=== PATIENT | female | born 1970 | race Native Hawaiian/Other Pacific Islander ===

== ENCOUNTER 2016-07-08 15:28 | Emergency (ER) | payer OTHER ==
[~2016-07-08] VITALS: Ht 162.6 cm; Wt 48.5 kg
[2016-07-08] MEDS ORDERED: CLON1TAB18 PO (15:56)
[2016-07-08] MEDS ORDERED: ADDERALL10 MG OR (15:57)
== END 2016-07-08 15:59 | disposition home or self-care (01) ==
LOC: ED 15:28
DX: L02.212 Cutaneous abscess of back [any part, except buttock and flank] (principal)
CPT/HCPCS: 99282

== ENCOUNTER 2016-11-14 19:00 | Emergency (ER) | payer OTHER ==
[~2016-11-14] VITALS: Ht 162.6 cm; Wt 47.6 kg
[~2016-11-14 19:00] MED LIST: ADDERALL10 MG OR; CLON1TAB18 PO
== END 2016-11-14 20:50 | disposition home or self-care (01) ==
LOC: ED 19:00
PROC: 2W3DX1Z Immobilization of Left Lower Arm using Splint (ICD-10-PCS; principal; 2016-11-14)
DX: S52.592A Other fractures of lower end of left radius, initial encounter for closed fracture (principal); V80.010A Animal-rider injured by fall from or being thrown from horse in noncollision accident, initial encounter; Y92.89 Other specified places as the place of occurrence of the external cause
CPT/HCPCS: 99283

== ENCOUNTER 2022-06-12 13:07 | Outpatient (CLI) | payer OTHER | END 2022-06-12 19:32 | disposition home or self-care (01) | LOC: MAMMO 13:07 | PROVIDERS: ATTEND Obstetrics & Gynecology | DX: Z13.820 Encounter for screening for osteoporosis (principal); Z12.31 Encounter for screening mammogram for malignant neoplasm of breast ==